=== PATIENT | female | born 1950 | race Caucasian/White ===

== ENCOUNTER → 2016-07-13 | Outpatient (CLI) | payer OTHER ==
[~2016-07-13] MED LIST: ACET-1175 PO; AMLO10TA2 PO; ATRINS INH; ATV5 PO; BISA10SU3 PR; CITA20TA4 PO; CMD3 PO; DFL100 PO; DRGTP12 TD; ECRCR EXT; EMOL1CRE10 TOP; FERR1TAB39 PO; FLV1 PO; FOLI1TAB7 PO; IPRASOL4 INH; KFL500 PO; LISI-725 PO; LNX125 PO; LORA-741 PO; LPR100 PO; LVNIS40 SQ; METO25TA56 PO; MOML PO; MULTTAB PO; NUTR-1197 PO; NYSCR30 TOP; NYSP EXT; OXYC-106 PO; OXYC-57 PO; POLY335019 PO; PRT40 PO; SODIENE PR; TYL325X PO; WARF3TAB PO; WARF4TAB PO; XPNINS1255 INH
[2016-07-13 09:27] LABS: INR 3.6 (0.9-1.1); PROTHROMBIN TIME (PATIENT) 40.7 SECONDS (9.0-12.0)
== END | disposition home or self-care (01) ==
LOC: C.LABUPUNI 08:52
PROVIDERS: ATTEND Family Medicine
DX: I48.2 Chronic atrial fibrillation (principal)

== ENCOUNTER → 2016-07-16 | Outpatient (CLI) | payer OTHER ==
[2016-07-16 11:03] LABS: BLOOD UREA NITROGEN 50 mg/dl (7-18); BUN/CREATININE RATIO 26.3 (10-20); CALCIUM 9.5 mg/dl (8.5-10.1); CARBON DIOXIDE 22 mmol/L (21-32); CHLORIDE 111 mmol/L (98-107); GLUCOSE 178 mg/dl (70-99); POTASSIUM 4.4 mmol/L (3.5-5.1); SODIUM 142 mmol/L (136-145)
[2016-07-16 11:07] LABS: BASO % 0.6 %; BASO ABS # 0.07 K/uL (0-0.2); COMPLETE YES; HEMATOCRIT 30.6 % (37-47); IG% 1.1 %; LYMPH % 22.3 %; LYMPH ABS # 2.73 K/uL (1.2-3.4); MEAN CELL VOLUME 96.2 fL (80-100); MEAN CORPUSCULAR HEMOGLOBIN 31.4 pg (25-34); MEAN CORPUSCULAR HGB CONC 32.7 g/dl (32-36); MEAN PLATELET VOLUME 12.5 fL (7.4-10.4); MONO % 12.3 %; NEUT % 61.7 %; PLATELET COUNT 232 K/uL (130-400); RED BLOOD COUNT 3.18 M/uL (4.2-5.4); WHITE BLOOD COUNT 12.26 K/uL (4.8-10.8)
== END ==
LOC: C.LABUPUNI 10:37
PROVIDERS: ATTEND Family Medicine
DX: D64.9 Anemia, unspecified (principal); E87.6 Hypokalemia; I50.9 Heart failure, unspecified

== ENCOUNTER → 2016-07-17 | Outpatient (CLI) | payer OTHER ==
[2016-07-17 08:53] LABS: INR 2.4 (0.9-1.1); PROTHROMBIN TIME (PATIENT) 27.2 SECONDS (9.0-12.0)
== END ==
LOC: C.LABUPUNI 08:19
PROVIDERS: ATTEND Family Medicine
DX: I50.9 Heart failure, unspecified (principal); D64.9 Anemia, unspecified

== ENCOUNTER → 2016-07-24 | Outpatient (CLI) | payer OTHER ==
[2016-07-24 08:54] LABS: INR 1.7 (0.9-1.1); PROTHROMBIN TIME (PATIENT) 18.1 SECONDS (9.0-12.0)
== END ==
LOC: C.LABUPUNI 08:10
PROVIDERS: ATTEND Family Medicine
DX: I48.2 Chronic atrial fibrillation (principal)

== ENCOUNTER → 2016-07-27 | Outpatient (CLI) | payer OTHER ==
[2016-07-27 10:24] LABS: INR 1.9 (0.9-1.1)
== END ==
LOC: C.LABUPUNI 09:40
PROVIDERS: ATTEND Family Medicine
DX: I48.1 Persistent atrial fibrillation (principal)

== ENCOUNTER → 2016-08-03 | Outpatient (CLI) | payer OTHER ==
[2016-08-03 09:18] LABS: INR 2.3 (0.9-1.1); PROTHROMBIN TIME (PATIENT) 25.4 SECONDS (9.0-12.0)
== END ==
LOC: C.LABUPUNI 08:34
PROVIDERS: ATTEND Family Medicine
DX: D64.9 Anemia, unspecified (principal)

== ENCOUNTER → 2016-08-13 | Outpatient (CLI) | payer OTHER ==
[2016-08-13 08:51] LABS: HEMATOCRIT 30.4 % (37-47); MEAN CELL VOLUME 95.3 fL (80-100); MEAN CORPUSCULAR HEMOGLOBIN 31.3 pg (25-34); MEAN CORPUSCULAR HGB CONC 32.9 g/dl (32-36); MEAN PLATELET VOLUME 12.4 fL (7.4-10.4); PLATELET COUNT 212 K/uL (130-400); RED BLOOD COUNT 3.19 M/uL (4.2-5.4); WHITE BLOOD COUNT 11.42 K/uL (4.8-10.8)
--- NOTE | 2016-08-14 10:34 | CODING QUERY NO DIAGNOSIS ---
: 1950 TREATMENT RENDERED WITHOUT A DIAGNOSIS To promote full compliance with coding requirements relating to patient care, physician participation is requested in all cases of presser hand uncertainty. Please assist us with providing a diagnosis/symptom for the test(s) below: A diagnosis/symptom was not documented on your Order. A valid diagnosis/symptom is required to bill all insurances. Please remember that we are unable to code a diagnosis of rule out, probable, possible, questionable, or suspected. Tests that require a diagnosis: DOS: 08/13/16 * CBC w/o Diff DIAGNOSIS: Provider Signature: Date: Thank you Keri [facility] Information Management Once completed, please kindly fax back to [phone] For questions please call [phone]
== END ==
LOC: C.LABUPUNI 08:30
PROVIDERS: ATTEND Family Medicine
DX: D64.9 Anemia, unspecified (principal); R53.83 Other fatigue

== ENCOUNTER → 2016-08-17 | Outpatient (CLI) | payer OTHER ==
[2016-08-17 09:08] LABS: PROTHROMBIN TIME (PATIENT) 22.2 SECONDS (9.0-12.0)
== END ==
LOC: C.LABUPUNI 08:40
PROVIDERS: ATTEND Family Medicine
DX: I48.2 Chronic atrial fibrillation (principal)

== ENCOUNTER → 2016-08-31 | Outpatient (CLI) | payer OTHER ==
[2016-08-31 09:40] LABS: INR 2.1 (0.9-1.1); PROTHROMBIN TIME (PATIENT) 23.4 SECONDS (9.0-12.0)
== END ==
LOC: C.LABUPUNI 09:11
PROVIDERS: ATTEND Family Medicine
DX: I48.2 Chronic atrial fibrillation (principal)

== ENCOUNTER → 2016-09-10 | Outpatient (CLI) | payer OTHER ==
[2016-09-10 10:06] LABS: BLOOD UREA NITROGEN 50 mg/dl (7-18); CALCIUM 9.8 mg/dl (8.5-10.1); CARBON DIOXIDE 19 mmol/L (21-32); CHLORIDE 108 mmol/L (98-107); GLUCOSE 176 mg/dl (70-99); POTASSIUM 3.9 mmol/L (3.5-5.1); SODIUM 138 mmol/L (136-145)
== END ==
LOC: C.LABUPUNI 09:15
PROVIDERS: ATTEND Family Medicine
DX: I50.9 Heart failure, unspecified (principal)

== ENCOUNTER → 2016-09-11 | Outpatient (CLI) | payer OTHER ==
[2016-09-11 09:14] LABS: URINE APPEARANCE CLOUDY (CLEAR); URINE BILIRUBIN NEG (NEG); URINE COLOR YELLOW; URINE EPITHELIAL CELL AUTO 0-5 /lpf (0-5); URINE NITRITE POS (NEG); URINE SPECIFIC GRAVITY 1.014 (1.000-1.030); UROBILINOGEN NEG (NEG)
[2016-09-11 09:17] LABS: MANUAL MICROSCOPIC REQUIRED? NO; REVIEW REQ? NO
--- NOTE | 2016-11-20 06:28 | CODING QUERY NO DIAGNOSIS ---
: 1950 TREATMENT RENDERED WITHOUT A DIAGNOSIS To promote full compliance with coding requirements relating to patient care, physician participation is requested in all cases of certified medical coder uncertainty. Please assist us with providing a diagnosis/symptom for the test(s) below: A diagnosis/symptom was not documented on your Order. A valid diagnosis/symptom is required to bill all insurances. Please remember that we are unable to code a diagnosis of rule out, probable, possible, questionable, or suspected. Tests that require a diagnosis: DOS: 09/11/16 UA CLEAN CATCH DIAGNOSIS: MICROALBUMINURIA DIAGNOSIS: URINE CULTURE DIAGNOSIS: Provider Signature: Date: Thank you Tsering Pruitt [email or web address] Information Management Once completed, please kindly fax back to [phone] For questions please call [phone]
== END | disposition home or self-care (01) ==
LOC: C.LABUPUNI 08:31
PROVIDERS: ATTEND Family Medicine
DX: Z01.89 Encounter for other specified special examinations (principal)

== ENCOUNTER → 2016-09-17 | Outpatient (CLI) | payer OTHER | LOC: C.LABUPUNI 09:10 | PROVIDERS: ATTEND Family Medicine | DX: I48.2 Chronic atrial fibrillation (principal) ==

== ENCOUNTER → 2016-09-28 | Outpatient (CLI) | payer OTHER ==
[2016-09-28 09:21] LABS: INR 3.8 (0.9-1.1); PROTHROMBIN TIME (PATIENT) 42.4 SECONDS (9.0-12.0)
--- NOTE | 2016-09-30 11:53 | CODING QUERY NO DIAGNOSIS ---
TREATMENT RENDERED WITHOUT A DIAGNOSIS To promote full compliance with coding requirements relating to patient care, physician participation is requested in all cases of site administrator uncertainty. Please assist us with providing a diagnosis/symptom for the test(s) below: A diagnosis/symptom was not documented on your Order. A valid diagnosis/symptom is required to bill all insurances. Please remember that we are unable to code a diagnosis of rule out, probable, possible, questionable, or suspected. Tests that require a diagnosis: DOS: 09/28/16 * PT/INR DIAGNOSIS: Provider Signature: Date: Thank you Amanda [facility] Information Management Once completed, please kindly fax back to [phone] For questions please call [phone]
== END ==
LOC: C.LABUPUNI 08:08
PROVIDERS: ATTEND Family Medicine
DX: Z51.81 Encounter for therapeutic drug level monitoring (principal); Z79.01 Long term (current) use of anticoagulants

== ENCOUNTER → 2016-10-05 | Outpatient (CLI) | payer OTHER ==
[2016-10-05 08:57] LABS: INR 2.2 (0.9-1.1); PROTHROMBIN TIME (PATIENT) 24.4 SECONDS (9.0-12.0)
== END ==
LOC: C.LABUPUNI 08:31
PROVIDERS: ATTEND Family Medicine
DX: I48.2 Chronic atrial fibrillation (principal)

== ENCOUNTER → 2016-10-06 | Outpatient (CLI) | payer OTHER ==
--- NOTE | 2016-10-06 14:54 | DIAGNOSTIC IMAGING REPORT ---
CT OF THE ABDOMEN AND PELVIS WITHOUT CONTRAST CLINICAL HISTORY: Bilateral renal masses. Evaluate for cysts. COMPARISON STUDY: CT of the abdomen and pelvis December 04, 2014 and renal ultrasound December 05, 2014. TECHNIQUE: Axial images of the abdomen and pelvis were obtained without IV contrast. Images were reviewed in the axial, sagittal, and coronal planes. FINDINGS: Visualized portions of the lower chest demonstrate moderate cardiomegaly. Left lower lobe and lingular opacities suggest atelectasis. There is a trace left pleural effusion. Evaluation of the abdomen and pelvis is suboptimal on this unenhanced exam. Fatty infiltration of the liver is noted. Unenhanced images of the spleen, left adrenal gland pancreas are unremarkable. A low-attenuation 2.9 cm right adrenal nodule is unchanged since CT of December 04, 2014. This represents an adenoma. There is gas within the right renal collecting system as well as the bladder. Numerous water attenuation bilateral renal lesions are noted. These are suboptimally assessed on this unenhanced exam but were shown to represent cysts on prior ultrasound. There is no hydronephrosis. There is no evidence for a bowel obstruction. There is colonic diverticulosis without evidence for acute diverticulitis. Note is made of moderate amount stool within the colon. There is a fat-containing umbilical hernia. No suspicious osseous lesions are identified. IMPRESSION: 1. Multiple water attenuation bilateral renal lesions, including a 9 cm lesion arising from the lower pole of the right kidney. These are suboptimally assessed on this unenhanced exam but are similar to prior CT and were shown to represent cysts on prior ultrasound. 2. Gas within the right renal collecting system and the bladder. This could be due to recent instrumentation or an infectious process. Correlation with history of recent instrumentation and clinical evidence for infectious process is recommended. 3. Fatty liver. 4. Right adrenal adenoma. Electronically signed by: Jameson Amezcua M.D. 10/06/2016 2:53 PM Dictated Date/Time: 10/06/2016 2:43 PM
== END | disposition home or self-care (01) ==
LOC: C.CTS 13:43
PROVIDERS: ATTEND Hospitalist
DX: N28.89 Other specified disorders of kidney and ureter (principal); K42.9 Umbilical hernia without obstruction or gangrene; K76.0 Fatty (change of) liver, not elsewhere classified

== ENCOUNTER → 2016-10-12 | Outpatient (CLI) | payer OTHER ==
[2016-10-12 09:14] LABS: INR 2.4 (0.9-1.1); PROTHROMBIN TIME (PATIENT) 26.6 SECONDS (9.0-12.0)
== END ==
LOC: C.LABUPUNI 08:45
PROVIDERS: ATTEND Family Medicine
DX: I48.2 Chronic atrial fibrillation (principal)

== ENCOUNTER → 2016-10-26 | Outpatient (CLI) | payer OTHER ==
[2016-10-26 09:55] LABS: INR 2.8 (0.9-1.1); PROTHROMBIN TIME (PATIENT) 31.1 SECONDS (9.0-12.0)
== END | disposition home or self-care (01) ==
LOC: C.LABUPUNI 09:16
PROVIDERS: ATTEND Family Medicine
DX: I48.2 Chronic atrial fibrillation (principal)

== ENCOUNTER 2016-10-29 20:16 | Emergency (ER) | payer OTHER ==
[~2016-10-29] VITALS: Ht 172.7 cm; Wt 111.8 kg
[~2016-10-29 20:16] MED LIST changes: -ACET-1175 PO; -AMLO10TA2 PO; -BISA10SU3 PR; -CITA20TA4 PO; -EMOL1CRE10 TOP; -FERR1TAB39 PO; -FOLI1TAB7 PO; -IPRASOL4 INH; -LISI-725 PO; -LORA-741 PO; -METO25TA56 PO; -MOML PO; -MULTTAB PO; -NYSCR30 TOP; -OXYC-57 PO; -POLY335019 PO; -SODIENE PR; -WARF3TAB PO; -WARF4TAB PO
[2016-10-29] MEDS ORDERED: ONDANSETRON INJ 2 MG/ML 2 ML VIAL IV STA (20:29)
[2016-10-29] MEDS ORDERED: SODIUM CHLORIDE 0.9% 1000ML 1,000 ML IV STA (20:29)
[2016-10-29] MEDS ORDERED: MoRPHine SULFATE 4 MG/ML 1 ML CARP\\VIAL IV PRN (20:30)
--- NOTE | 2016-10-29 20:31 | EMERGENCY ROOM VISIT NOTE ---
History Report prepared by Munir: Anjum Robbins Under the Supervision of: Dr. Timothy Anderson D.O. First contact with patient: 20:20 Stated Complaint: FALL/ BACK [facility] / [facility] History of Present Illness The patient is a 65 year old female who presents to the Emergency Room with complaints of an acute fall that occurred earlier tonight. The patient was using a lift chair to descend the steps when a wire snapped and she fell from the chair. She was at the 3rd step from the bottom. She now complains of increased lower back pain. She did not hit her head or lose consciousness. The patient denies head pain, neck pain, shortness of breath, hip or leg pain. She has ankle pain at baseline. The patient has a history of hypertension. She resided at [facility], which is where the fall occurred. Source of History: patient Onset: earlier tonight Position: other (global) Quality: other (fall) Timing: other (acute) Associated Symptoms: + back pain, No LOC, No chest pain, No headache, No neck pain Review of Systems See HPI for pertinent positives & negatives. A total of 10 systems reviewed and were otherwise negative. Past Medical & Surgical Medical Problems: (1) Chronic kidney disease (2) Hypertension (3) Medical non-compliance Family History Patient reports no known family medical history. Social History Smoking Status: Unknown if Ever Smoked Marital Status: single Occupation Status: retired Current/Historical Medications Scheduled Amlodipine Besylate (Norvasc), 10 MG PO DAILY Citalopram Hydrobromide (Citalopram Hydrobromide), 20 MG PO DAILY Digoxin (Digoxin), 0.125 MG PO DAILY Emollient (Eucerin Calming Daily Mario), 1 APPLN TOP BID Ferrous Sulfate Dried (Feosol), 325 MG PO DAILY Folic Acid (Folvite), 1 MG PO DAILY Lisinopril (Zestril), 20 MG PO DAILY Metoprolol Tartrate (Lopressor) (Lopressor), 25 MG PO BID Multivitamins/Minerals (Mvi With Minerals), 1 TAB PO DAILY Warfarin Sodium (Coumadin), 4 MG PO HS Scheduled PRN Acetaminophen (Tylenol), 650 MG PO Q4H PRN for Fever Acetaminophen (Tylenol), 650 MG PO Q6H PRN for Pain Bisacodyl (Dulcolax), 1 SUPP NV Q24H PRN for Constipation Ipratropium-Albuterol (Duoneb), 1 TREATMENT INH Q4H PRN for SOB/Wheezing Magnesium Hydroxide (Milk Of Magnesia), 30 ML PO Q24H PRN for Constipation Nystatin (Nystatin Cream), 1 APPLN TOP Q8 PRN for Skin Irritation/Excoriation Oxycodone/Acetaminophen 5MG/325MG (Percocet 5MG/325MG), 1 TABLET PO Q6H PRN for Pain Polyethylene Glycol 3350 (Miralax), 17 GM PO Q24H PRN for Constipation Sodium Phosphate/Biphosphate (Fleet Enema), 1 EA NV UD PRN for Constipation Allergies Coded Allergies: Cephalosporins (Verified Allergy, Unknown, Unknown, 10/29/16) Sulfa Antibiotics (Verified Allergy, Unknown, unknown, 02/05/15) Physical Exam Vital Signs Date Time Temp Pulse Resp B/P Pulse Ox O2 Delivery O2 Flow Rate FiO2 10/30/16 01:35 100 22 118/73 94 Room Air 10/29/16 23:32 92 24 104/77 92 Nasal Cannula 10/29/16 22:24 143 10/29/16 22:20 96 Nasal Cannula 2.0 10/29/16 22:15 124 20 99/58 92 Room Air 10/29/16 20:33 37.0 126 25 121/93 94 Room Air Physical Exam GENERAL: Patient is awake, alert, very anxious and uncomfortable appearing, appears to be in moderate pain. EYES: The conjunctivae are clear. The pupils are round and reactive. EARS, NOSE, MOUTH AND THROAT: The nose is without any evidence of any deformity. Mucous membranes are moist tongue is midline NECK: The neck is nontender and supple. RESPIRATORY: Normal respiratory effort is noted there is no evidence of wheezing rhonchi or rales CARDIOVASCULAR: Regular rate and rhythm noted there no murmurs rubs or gallops normal S1 normal S2 GASTROINTESTINAL: The abdomen is soft. Bowel sounds are present in all quadrants. Abdomen is nontender BACK: Lower lumbar spine tenderness to palpation, range of motion appeared limited secondary to pain. MUSCULOSKELETAL/EXTREMITIES: There is no evidence of gross deformity full range of motion is noted in the hips and shoulders SKIN: There is no obvious evidence of any rash. There are no petechiae, pallor or cyanosis noted. Pedal edema was noted bilaterally. NEUROLOGIC: Patient is awake alert and oriented to person place and situation. Medical Decision & Procedures ER Provider Diagnostic Interpretation: Radiology results as stated below per my review and radiologist interpretation: HEAD CT NONCONTRAST CT DOSE: 687.98 mGy.cm HISTORY: fall TECHNIQUE: Multiaxial CT images of the head were performed without the use of intravenous contrast. Automated exposure control was utilized for this study. Comparison: Head CT 12/05/2014. Findings: Mild mucosal thickening within the right maxillary sinus. The mastoid air cells are clear. Left parietal scalp swelling. The calvarium and skull base are intact. There is no mass, hematoma, midline shift, acute infarct. White matter hypodensity is nonspecific but suggestive of microvascular ischemic change. The ventricles and sulci demonstrate mild age-related involutional changes. 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 Impression: No acute intracranial abnormality. 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 Left parietal scalp swelling. Electronically signed by: Sandoval Panda M.D. 10/29/2016 9:58 PM Dictated Date/Time: 10/29/2016 9:53 PM CHEST ONE VIEW PORTABLE HISTORY: Fall. COMPARISON: Chest 12/04/2014. FINDINGS: The cardiac silhouette remains enlarged. Linear densities within the left midlung zone favor subsegmental atelectasis or scarring. The lungs are otherwise clear. No pleural effusions. No pneumothorax. IMPRESSION: Stable cardiomegaly. Linear density within the left midlung zone favor scarring or atelectasis. Electronically signed by: Sandoval Panda M.D. 10/29/2016 10:29 PM Dictated Date/Time: 10/29/2016 10:[address] DOSE: 2188.67 mGy.cm HISTORY: Back pain. fall TECHNIQUE: Multiaxial CT images of the lumbar spine were performed and reformatted in the sagittal and coronal plane without the use of contrast. COMPARISON: None. FINDINGS: Fusion of the L5-S1 vertebral bodies and the L3-S1 facets. Nondisplaced left L1-L4 transverse process fractures. Partially visualized 7.4 cm hypodense lesion within the lower pole of the right kidney. This favors a cyst. A 3 cm right adrenal nodule. This demonstrates average Hounsfield units of less than 10 and is therefore consistent with a benign adenoma. Moderate central canal narrowing at L4-5. Mild disc space narrowing at L4-L5. IMPRESSION: Nondisplaced left L1-L4 transverse process fractures. Electronically signed by: Sandoval Panda M.D. 10/29/2016 10:04 PM Dictated Date/Time: 10/29/2016 9:[address] DOSE: HISTORY: Pelvic pain. fall TECHNIQUE: Multiaxial CT images of the pelvis were performed and reformatted in the sagittal and coronal plane without the use of contrast. COMPARISON: None. FINDINGS: No fracture or dislocation within the pelvis or hips. The sacrum is intact. 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 Gas within the bladder lumen is likely due to prior catheterization. Colonic diverticulosis. Fat-containing umbilical hernia. Right renal cyst is again noted. No evidence for pelvic hematoma. IMPRESSION: No fracture or dislocation within the pelvis or hips. Electronically signed by: Sandoval Panda M.D. 10/29/2016 10:11 PM Dictated Date/Time: 10/29/2016 10:04 PM Laboratory Results 10/29/16 20:50 Red Blood Count 3.20, Mean Corpuscular Volume 91.3, Mean Corpuscular Hemoglobin 28.8, Mean Corpuscular Hemoglobin Concent 31.5, Mean Platelet Volume 11.3, Neutrophils (%) (Auto) 76.5, Lymphocytes (%) (Auto) 9.9, Monocytes (%) (Auto) 10.8, Eosinophils (%) (Auto) 1.9, Basophils (%) (Auto) 0.2, Neutrophils # (Auto ) 10.20, Lymphocytes # (Auto) 1.32, Monocytes # (Auto) 1.44, Eosinophils # (Auto ) 0.25, Basophils # (Auto) 0.03 10/29/16 20:50 Test 10/29/16 20:50 White Blood Count 13.33 K/uL (4.8-10.8) Red Blood Count 3.20 M/uL (4.2-5.4) Hemoglobin 9.2 g/dL (12.0-16.0) Hematocrit 29.2 % (37-47) Mean Corpuscular Volume 91.3 fL (80-100) Mean Corpuscular Hemoglobin 28.8 pg (25-34) Mean Corpuscular Hemoglobin Concent 31.5 g/dl (32-36) Platelet Count 311 K/uL (130-400) Mean Platelet Volume 11.3 fL (7.4-10.4) Neutrophils (%) (Auto) 76.5 % Lymphocytes (%) (Auto) 9.9 % Monocytes (%) (Auto) 10.8 % Eosinophils (%) (Auto) 1.9 % Basophils (%) (Auto) 0.2 % Neutrophils # (Auto) 10.20 K/uL (1.4-6.5) Lymphocytes # (Auto) 1.32 K/uL (1.2-3.4) Monocytes # (Auto) 1.44 K/uL (0.11-0.59) Eosinophils # (Auto) 0.25 K/uL (0-0.5) Basophils # (Auto) 0.03 K/uL (0-0.2) RDW Standard Deviation 46.0 fL (36.4-46.3) RDW Coefficient of Variation 13.8 % (11.5-14.5) Immature Granulocyte % (Auto) 0.7 % Immature Granulocyte # (Auto) 0.09 K/uL (0.00-0.02) Prothrombin Time 34.1 SECONDS (9.0-12.0) Prothromb Time International Ratio 3.0 (0.9-1.1) Activated Partial Thromboplast Time 38.7 SECONDS (21.0-31.0) Partial Thromboplastin Ratio 1.5 Anion Gap 10.0 mmol/L (3-11) Est Creatinine Clear Calc Drug Dose 31.0 ml/min Estimated GFR () 23.9 Estimated GFR (Non- 20.6 BUN/Creatinine Ratio 32.1 (10-20) Calcium Level 9.6 mg/dl (8.5-10.1) Total Bilirubin 0.3 mg/dl (0.2-1) Direct Bilirubin < 0.1 mg/dl (0-0.2) Aspartate Amino Transf (AST/SGOT) 21 U/L (15-37) Alanine Aminotransferase (ALT/SGPT) 35 U/L (12-78) Alkaline Phosphatase 78 U/L (45-117) Total Protein 7.1 gm/dl (6.4-8.2) Albumin 2.5 gm/dl (3.4-5.0) Lipase 432 U/L (73-393) Digoxin Level 1.1 ng/ml (0.8-2.0) Laboratory results per my review. Medications Administered Medications (Trade) Dose Ordered Sig/Oneyda Route Start Time Stop Time Status Last Admin Dose Admin Morphine Sulfate (MoRPHine SULFATE INJ) 4 mg Q15M PRN IV 10/29/16 20:30 10/30/16 02:01 DC 10/29/16 20:59 4 MG Ondansetron HCl 4 mg 4 mg NOW STAT IV 10/29/16 20:29 10/29/16 20:31 DC 10/29/16 20:59 4 MG Sodium Chloride (Nss 1000ml) 1,000 ml @ 125 mls/hr Q8H STAT IV 10/29/16 20:29 10/30/16 02:01 DC 10/29/16 22:36 125 MLS/HR ED Course 2019: The patient was evaluated in room B12b. A complete history and physical examination were performed. 2028: NSS 1000 ml @ 125 mls/hr, Zofran 4 mg IV. 2029: Morphine Sulfate 4 mg IV. 0: Reassessed the patient. Discussed the discharge instructions with her. She verbalized understanding and agreement. The patient is ready for discharge. Medical Decision Prior records/ancillary studies reviewed. Triage Nursing notes reviewed. Additional history obtained from nursing. The patient's history was concerning for traumatic injury Differential diagnosis: Etiologies such as fracture, dislocation, intra-abdominal, pneumothorax, intrathoracic , intracranial, neurologic, as well as other traumatic pathologies were entertained. The patient is a 65-year-old male who presented to the emergency department for an evaluation after a fall. She was at her personal half-way when she fell. It sounds as though they were transferring her. She landed on her back. She had very significant back pain. She was treated with IV pain medication in the emergency department. On subsequent reevaluation she was feeling much better. I discussed patient's laboratory and radiographic studies with her. Initially I was going to evaluate her for possible observation with the [facility] hospitalist but she was feeling much better. She is already scheduled to have pain medication in the half-way. She was encouraged to continue all medications as prescribed and return to the emergency department immediately if symptoms change worsen or the need arises. Impression Primary Impression: Lumbar transverse process fracture Additional Impressions: MARY (acute kidney injury) Head injury Anemia Scribe Attestation The scribe's documentation has been prepared under my direction and personally reviewed by me in its entirety. I confirm that the note above accurately reflects all work, treatment, procedures, and medical decision making performed by me. Departure Information Dispostion Home / Self-Care Referrals [facility] (PCP) Forms HOME CARE DOCUMENTATION FORM, IMPORTANT VISIT INFORMATION Patient Instructions ED Anemia Type Not Specified, ED Fx Transverse Spinous Process, My [facility] Additional Instructions Continue all medications as prescribed. I would recommend repeat laboratory studies this week to reevaluate the anemia. Problem Qualifiers Primary Impression: Lumbar transverse process fracture Encounter type: initial encounter Fracture type: closed Qualified Codes: S32.008A - Other fracture of unspecified lumbar vertebra, initial encounter for closed fracture Additional Impressions: Head injury Encounter type: initial encounter Qualified Codes: S09.90XA - Unspecified injury of head, initial encounter
[2016-10-29 20:33] VITALS: TEMP 37; Ht 172.7 cm; Wt 111.8 kg
[2016-10-29 21:16] LABS: PARTIAL THROMBOPLASTIN RATIO 1.5; PROTHROMBIN TIME (PATIENT) 34.1 SECONDS (9.0-12.0)
[2016-10-29] MEDS ORDERED: MOML PO (21:18)
[2016-10-29] MEDS ORDERED: NYSCR30 TOP (21:18)
[2016-10-29] MEDS ORDERED: OXYC-57 PO (21:18)
[2016-10-29] MEDS ORDERED: POLY335019 PO (21:18)
[2016-10-29] MEDS ORDERED: MULTTAB PO (21:18)
[2016-10-29] MEDS ORDERED: LISI-725 PO (21:18)
[2016-10-29] MEDS ORDERED: METO25TA56 PO (21:18)
[2016-10-29] MEDS ORDERED: ACET-1175 PO ×2 (21:23)
[2016-10-29] MEDS ORDERED: AMLO10TA2 PO (21:23)
[2016-10-29] MEDS ORDERED: CITA20TA4 PO (21:23)
[2016-10-29 21:25] LABS: ALT/SGPT 35 U/L (12-78); BLOOD UREA NITROGEN 77 mg/dl (7-18); BUN/CREATININE RATIO 32.1 (10-20); CARBON DIOXIDE 21 mmol/L (21-32); CHLORIDE 105 mmol/L (98-107); GLUCOSE 194 mg/dl (70-99); SODIUM 136 mmol/L (136-145)
[2016-10-29 21:28] LABS: ALKALINE PHOSPHATASE 78 U/L (45-117); AST/SGOT 21 U/L (15-37)
[2016-10-29] MEDS ORDERED: FERR1TAB39 PO (21:38)
[2016-10-29] MEDS ORDERED: EMOL1CRE10 TOP (21:38)
[2016-10-29] MEDS ORDERED: IPRASOL4 INH (21:38)
[2016-10-29] MEDS ORDERED: SODIENE PR (21:38)
[2016-10-29] MEDS ORDERED: BISA10SU3 PR (21:38)
[2016-10-29] MEDS ORDERED: FOLI1TAB7 PO (21:38)
[2016-10-29] MEDS ORDERED: WARF4TAB PO (21:38)
[2016-10-29] MEDS ORDERED: LNX125 PO (21:38)
[2016-10-29 21:40] LABS: BASO % 0.2 %; BASO ABS # 0.03 K/uL (0-0.2); COMPLETE YES; EOS % 1.9 %; HEMATOCRIT 29.2 % (37-47); IG% 0.7 %; LYMPH % 9.9 %; LYMPH ABS # 1.32 K/uL (1.2-3.4); MEAN CELL VOLUME 91.3 fL (80-100); MEAN CORPUSCULAR HEMOGLOBIN 28.8 pg (25-34); MEAN CORPUSCULAR HGB CONC 31.5 g/dl (32-36); MEAN PLATELET VOLUME 11.3 fL (7.4-10.4); MONO % 10.8 %; NEUT % 76.5 %; PLATELET COUNT 311 K/uL (130-400); WHITE BLOOD COUNT 13.33 K/uL (4.8-10.8)
[2016-10-29 21:52] LABS: CALCIUM 9.6 mg/dl (8.5-10.1)
--- NOTE | 2016-10-29 22:01 | DIAGNOSTIC IMAGING REPORT ---
HEAD CT NONCONTRAST CT DOSE: 687.98 mGy.cm HISTORY: fall TECHNIQUE: Multiaxial CT images of the head were performed without the use of intravenous contrast. Automated exposure control was utilized for this study. Comparison: Head CT 12/05/2014. Findings: Mild mucosal thickening within the right maxillary sinus. The mastoid air cells are clear. Left parietal scalp swelling. The calvarium and skull base are intact. There is no mass, hematoma, midline shift, acute infarct. White matter hypodensity is nonspecific but suggestive of microvascular ischemic change. The ventricles and sulci demonstrate mild age-related involutional changes. 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 Impression: No acute intracranial abnormality. 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 Left parietal scalp swelling. Electronically signed by: Sandoval Panda M.D. 10/29/2016 9:58 PM Dictated Date/Time: 10/29/2016 9:53 PM
--- NOTE | 2016-10-29 22:06 | DIAGNOSTIC IMAGING REPORT ---
LUMBAR SPINE CT CT DOSE: 2188.67 mGy.cm HISTORY: Back pain. fall TECHNIQUE: Multiaxial CT images of the lumbar spine were performed and reformatted in the sagittal and coronal plane without the use of contrast. COMPARISON: None. FINDINGS: Fusion of the L5-S1 vertebral bodies and the L3-S1 facets. Nondisplaced left L1-L4 transverse process fractures. Partially visualized 7.4 cm hypodense lesion within the lower pole of the right kidney. This favors a cyst. A 3 cm right adrenal nodule. This demonstrates average Hounsfield units of less than 10 and is therefore consistent with a benign adenoma. Moderate central canal narrowing at L4-5. Mild disc space narrowing at L4-L5. IMPRESSION: Nondisplaced left L1-L4 transverse process fractures. Electronically signed by: Sandoval Panda M.D. 10/29/2016 10:04 PM Dictated Date/Time: 10/29/2016 9:59 PM
--- NOTE | 2016-10-29 22:13 | DIAGNOSTIC IMAGING REPORT ---
PELVIS CT CT DOSE: HISTORY: Pelvic pain. fall TECHNIQUE: Multiaxial CT images of the pelvis were performed and reformatted in the sagittal and coronal plane without the use of contrast. COMPARISON: None. FINDINGS: No fracture or dislocation within the pelvis or hips. The sacrum is intact. 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 Gas within the bladder lumen is likely due to prior catheterization. Colonic diverticulosis. Fat-containing umbilical hernia. Right renal cyst is again noted. No evidence for pelvic hematoma. IMPRESSION: No fracture or dislocation within the pelvis or hips. Electronically signed by: Sandoval Panda M.D. 10/29/2016 10:11 PM Dictated Date/Time: 10/29/2016 10:04 PM
[2016-10-29 22:20] VITALS: O2SAT 96
--- NOTE | 2016-10-29 22:31 | DIAGNOSTIC IMAGING REPORT ---
CHEST ONE VIEW PORTABLE HISTORY: Fall. COMPARISON: Chest 12/04/2014. FINDINGS: The cardiac silhouette remains enlarged. Linear densities within the left midlung zone favor subsegmental atelectasis or scarring. The lungs are otherwise clear. No pleural effusions. No pneumothorax. IMPRESSION: Stable cardiomegaly. Linear density within the left midlung zone favor scarring or atelectasis. Electronically signed by: Sandoval Panda M.D. 10/29/2016 10:29 PM Dictated Date/Time: 10/29/2016 10:28 PM
[2016-10-30 01:35] VITALS: BP 118/73; PULSE 100; O2SAT 94
[2016-11-23] MEDS ORDERED: WARF3TAB PO (08:12)
[2016-11-23] MEDS ORDERED: LORA-741 PO (08:12)
== END 2016-10-30 01:46 | disposition home or self-care (01) ==
LOC: EDBD 20:16 → C.EDB 20:18
DX: M54.5 Low back pain (principal); R22.0 Localized swelling, mass and lump, head; W10.8XXA Fall (on) (from) other stairs and steps, initial encounter; Y92.89 Other specified places as the place of occurrence of the external cause; I12.9 Hypertensive chronic kidney disease with stage 1 through stage 4 chronic kidney disease, or unspecified chronic kidney disease; N18.9 Chronic kidney disease, unspecified; Z79.899 Other long term (current) drug therapy; Z79.01 Long term (current) use of anticoagulants

== ENCOUNTER → 2016-11-02 | Outpatient (CLI) | payer OTHER ==
[~2016-11-02] MED LIST changes: +ACET-1175 PO; +AMLO10TA2 PO; +BISA10SU3 PR; +CITA20TA4 PO; +EMOL1CRE10 TOP; +FERR1TAB39 PO; +FOLI1TAB7 PO; +IPRASOL4 INH; +LISI-725 PO; +LORA-741 PO; +METO25TA56 PO; +MOML PO; +MULTTAB PO; +NYSCR30 TOP; +OXYC-57 PO; +POLY335019 PO; +SODIENE PR; +WARF3TAB PO; +WARF4TAB PO
[2016-11-02 10:49] LABS: HEMATOCRIT 26.3 % (37-47); MEAN CELL VOLUME 91.6 fL (80-100); MEAN CORPUSCULAR HEMOGLOBIN 28.9 pg (25-34); MEAN CORPUSCULAR HGB CONC 31.6 g/dl (32-36); MEAN PLATELET VOLUME 11.7 fL (7.4-10.4); PLATELET COUNT 257 K/uL (130-400); RED BLOOD COUNT 2.87 M/uL (4.2-5.4); WHITE BLOOD COUNT 9.31 K/uL (4.8-10.8)
[2016-11-02 11:07] LABS: INR 3.5 (0.9-1.1); PROTHROMBIN TIME (PATIENT) 39.1 SECONDS (9.0-12.0)
[2016-11-02 11:48] LABS: BLOOD UREA NITROGEN 77 mg/dl (7-18); CALCIUM 9.9 mg/dl (8.5-10.1); CARBON DIOXIDE 18 mmol/L (21-32); CHLORIDE 111 mmol/L (98-107); GLUCOSE 123 mg/dl (70-99); POTASSIUM 5.4 mmol/L (3.5-5.1); SODIUM 140 mmol/L (136-145)
== END ==
LOC: C.LABUPUNI 10:33
PROVIDERS: ATTEND Family Medicine
DX: I50.9 Heart failure, unspecified (principal); I48.91 Unspecified atrial fibrillation

== ENCOUNTER → 2016-11-04 | Outpatient (CLI) | payer OTHER ==
[~2016-11-04] MED LIST changes: -ATRINS INH; -ATV5 PO; -CMD3 PO; -DFL100 PO; -DRGTP12 TD; -ECRCR EXT; -FLV1 PO; -KFL500 PO; -LPR100 PO; -LVNIS40 SQ; -NUTR-1197 PO; -NYSP EXT; -OXYC-106 PO; -PRT40 PO; -TYL325X PO; -XPNINS1255 INH
[2016-11-04 10:14] LABS: PROTHROMBIN TIME (PATIENT) 22.3 SECONDS (9.0-12.0)
[2016-11-04 10:17] LABS: BLOOD UREA NITROGEN 65 mg/dl (7-18); BUN/CREATININE RATIO 27.2 (10-20); CARBON DIOXIDE 22 mmol/L (21-32); CHLORIDE 109 mmol/L (98-107); GLUCOSE 107 mg/dl (70-99); MAGNESIUM 2.5 mg/dl (1.8-2.4); SODIUM 139 mmol/L (136-145)
[2016-11-04 10:27] LABS: CALCIUM 10.3 mg/dl (8.5-10.1)
== END ==
LOC: C.LABUPUNI 09:24
PROVIDERS: ATTEND Family Medicine
DX: I48.2 Chronic atrial fibrillation (principal); D64.9 Anemia, unspecified; I50.9 Heart failure, unspecified

== ENCOUNTER → 2016-11-06 | Outpatient (CLI) | payer OTHER ==
[2016-11-06 09:07] LABS: HEMATOCRIT 26.8 % (37-47)
[2016-11-06 09:13] LABS: BLOOD UREA NITROGEN 61 mg/dl (7-18); BUN/CREATININE RATIO 26.6 (10-20); CARBON DIOXIDE 22 mmol/L (21-32); CHLORIDE 108 mmol/L (98-107); GLUCOSE 110 mg/dl (70-99); POTASSIUM 4.8 mmol/L (3.5-5.1); SODIUM 137 mmol/L (136-145)
[2016-11-06 09:21] LABS: INR 1.8 (0.9-1.1); PROTHROMBIN TIME (PATIENT) 20.3 SECONDS (9.0-12.0)
[2016-11-06 09:33] LABS: CALCIUM 10.3 mg/dl (8.5-10.1)
== END | disposition home or self-care (01) ==
LOC: C.LABUPUNI 08:48
PROVIDERS: ATTEND Nurse Practitioner Family
DX: D64.9 Anemia, unspecified (principal); I50.9 Heart failure, unspecified

== ENCOUNTER → 2016-11-09 | Outpatient (CLI) | payer OTHER ==
[2016-11-09 09:45] LABS: INR 2.6 (0.9-1.1); PROTHROMBIN TIME (PATIENT) 29.2 SECONDS (9.0-12.0)
--- NOTE | 2016-11-11 12:52 | CODING QUERY NO DIAGNOSIS ---
TREATMENT RENDERED WITHOUT A DIAGNOSIS To promote full compliance with coding requirements relating to patient care, physician participation is requested in all cases of ship pilot uncertainty. Please assist us with providing a diagnosis/symptom for the test(s) below: A diagnosis/symptom was not documented on your Order. A valid diagnosis/symptom is required to bill all insurances. Please remember that we are unable to code a diagnosis of rule out, probable, possible, questionable, or suspected. Tests that require a diagnosis: DOS: 11/09/16 * PT/INR DIAGNOSIS: Provider Signature: Date: Thank you Amanda [facility] Information Management Once completed, please kindly fax back to [phone] For questions please call [phone]
== END ==
LOC: C.LABUPUNI 09:22
PROVIDERS: ATTEND Family Medicine
DX: I48.2 Chronic atrial fibrillation (principal)

== ENCOUNTER → 2016-11-13 | Outpatient (CLI) | payer OTHER ==
[2016-11-13 10:03] LABS: INR 2.5 (0.9-1.1); PROTHROMBIN TIME (PATIENT) 28.2 SECONDS (9.0-12.0)
== END ==
LOC: C.LABUPUNI 09:17
PROVIDERS: ATTEND Family Medicine
DX: D64.9 Anemia, unspecified (principal)

== ENCOUNTER → 2016-11-19 | Outpatient (CLI) | payer OTHER ==
[2016-11-19 09:24] LABS: PROTHROMBIN TIME (PATIENT) 53.3 SECONDS (9.0-12.0)
[2016-11-19 09:46] LABS: INR 4.7 (0.9-1.1)
--- NOTE | 2016-11-23 13:55 | CODING QUERY NO DIAGNOSIS ---
: 1950 TREATMENT RENDERED WITHOUT A DIAGNOSIS To promote full compliance with coding requirements relating to patient care, physician participation is requested in all cases of health information coder uncertainty. Please assist us with providing a diagnosis/symptom for the test(s) below: A diagnosis/symptom was not documented on your Order. A valid diagnosis/symptom is required to bill all insurances. Please remember that we are unable to code a diagnosis of rule out, probable, possible, questionable, or suspected. Tests that require a diagnosis: DOS: 11/19/16 * Prothrombin Time Profile DIAGNOSIS: Provider Signature: Date: Thank you Keri Villela [facility] Information Management Once completed, please kindly fax back to [phone] For questions please call [phone]
== END ==
LOC: C.LABUPUNI 08:52
PROVIDERS: ATTEND Family Medicine
DX: Z79.01 Long term (current) use of anticoagulants (principal)

== ENCOUNTER → 2016-11-20 | Outpatient (CLI) | payer OTHER ==
[2016-11-20 09:19] LABS: PROTHROMBIN TIME (PATIENT) 47.1 SECONDS (9.0-12.0)
[2016-11-20 09:21] LABS: INR 4.1 (0.9-1.1)
== END ==
LOC: C.LABUPUNI 08:43
PROVIDERS: ATTEND Family Medicine
DX: I48.2 Chronic atrial fibrillation (principal)

== ENCOUNTER → 2016-11-21 | Outpatient (CLI) | payer OTHER ==
[2016-11-21 06:23] LABS: INR 3.4 (0.9-1.1); PROTHROMBIN TIME (PATIENT) 38.2 SECONDS (9.0-12.0)
== END | disposition home or self-care (01) ==
LOC: C.LABUPUNI 12:53
PROVIDERS: ATTEND Family Medicine
DX: I48.2 Chronic atrial fibrillation (principal)

== ENCOUNTER → 2016-11-23 | Outpatient (CLI) | payer OTHER ==
[2016-11-23 09:18] LABS: INR 1.8 (0.9-1.1); PROTHROMBIN TIME (PATIENT) 19.9 SECONDS (9.0-12.0)
== END ==
LOC: C.LABUPUNI 08:47
PROVIDERS: ATTEND Family Medicine
DX: I48.2 Chronic atrial fibrillation (principal)

== ENCOUNTER → 2016-11-26 | Day surgery (SDC) | payer OTHER ==
[2016-11-23 08:13] VITALS: Ht 170.2 cm; Wt 102.6 kg
[~2016-11-26] VITALS: Ht 170.2 cm; Wt 102.6 kg
[~2016-11-26] MED LIST changes: +LIDOCAINE HCL 2% 2 ML VIAL (20MG/ML) ONE; +MIDAZOLAM HCL 1 MG/ML 2ML VIAL ONE; +ONDANSETRON INJ 2 MG/ML 2 ML VIAL ONE; +PROPOFOL IV EMULSION 10 MG/ML 20 ML VIAL IV ONE
--- NOTE | 2016-11-26 13:45 | Endo History and Physical ---
History & Physical Date of Service: November 26, 2016. Chief Complaint: Iron Deficiency anemia Constipation Referring Physician: Dr. Carbajal History of Present Illness 66 yo CF who presents for Colonoscopy secondary to iron deficiency anemia. Past Medical History Atrial Fibrillation, Diabetes, Hypertension, Kidney Disease Past Surgical History Hx Cardiac Surgery: No Hx Abdominal Surgery: No Hx Cancer Surgery: No Hx Thoracic Surgery: No Hx Orthopedic: No Hx Urinary Tract Surgery: No Family History None Social History Smoking Status: Former Smoker Allergies Coded Allergies: Cephalosporins (Verified Allergy, Unknown, Unknown, 11/23/16) Sulfa Antibiotics (Verified Allergy, Unknown, unknown, 11/23/16) Current Medications Reported Home Medications Medications Dose Route/Sig Max Daily Dose Days Date Category Dose Instructions Coumadin (Warfarin Sodium) 3 Mg Tab 3 Mg PO 4XWK 11/23/16 Reported HS ON SUN, , THUR, SAT Ativan (Lorazepam) 0.5 Mg Tab 0.5 Mg PO Q8H PRN 11/23/16 Reported Coumadin (Warfarin Sodium) 4 Mg Tab 4 Mg PO 3XWK 10/29/16 Reported HS ON MON, WED, FRI Digoxin 0.125 Mg Tab 0.125 Mg PO DAILY 10/29/16 Reported HOLD THIS MEDICATION FOR APICAL HEART RATE LESS THAN 60 Dulcolax (Bisacodyl) 10 Mg Sup 1 Supp MN Q24H PRN 10/29/16 Reported Duoneb (Ipratropium-Albuterol) 3 Ml Nebu 1 Treatment INH Q4H PRN 10/29/16 Reported Eucerin Calming Daily Mario (Emollient) 1 Cre Cre 1 Appln TOP BID 10/29/16 Reported APPLY DIRECTED TO LEGS AND FEET Feosol (Ferrous Sulfate Dried) Unknown Strength Tab 325 Mg PO DAILY 10/29/16 Reported Fleet Enema (Sodium Phosphate/Biphosphate) Rut 1 Ea MN UD PRN 10/29/16 Reported IF AFTER 4 HOURS DULCOLAX SUPPOSITORY WAS INEFFECTIVE GIVE FLEET ENEMA Folvite (Folic Acid) 1 Mg Tab 1 Mg PO DAILY 10/29/16 Reported Citalopram Hydrobromide 20 Mg Tab 20 Mg PO DAILY 10/29/16 Reported Norvasc (Amlodipine Besylate) 10 Mg Tab 10 Mg PO DAILY 10/29/16 Reported Tylenol (Acetaminophen) 325 Mg Tab 650 Mg PO Q6H PRN 10/29/16 Reported NEEDED FOR PAIN RATED 0-10 ON A SCLAE OF "0-10". DO NOT EXCEED 3 GM APAP/24 HOURS. Tylenol (Acetaminophen) 325 Mg Tab 650 Mg PO Q4H PRN 10/29/16 Reported NEEDED FOR ELEVATED TEMPERATURE GREATER THAN 101 F. DO NOT EXCEED 3 GM APAP/24 HOURS. Miralax (Polyethylene Glycol 3350) 1 Pow Pow 17 Gm PO Q24H PRN 10/29/16 Reported MIX WITH 4 OUNCES OF PREFERRED LIQUID Milk Of Magnesia (Magnesium Hydroxide) 30 Ml Susp 30 Ml PO Q24H PRN 10/29/16 Reported NEEDED FOR NO BOWEL MOVEMENT FOR 9 SHIFTS Lopressor (Metoprolol Tartrate) 25 Mg Tab 25 Mg PO BID 10/29/16 Reported HOLD THIS MEDICATION FOR HEART RATE LESS THAN 50 Percocet 5MG/325MG (Oxycodone/Acetaminophen) Tab 1 Tablet PO Q6H PRN 10/29/16 Reported NEEDED FOR PAIN RATED 5-10 ON A SCALE OF "0-10" Nystatin Cream (Nystatin) 90 Appln/30 Gm Cr 1 Appln TOP Q8 PRN 10/29/16 Reported APPLY UNDER BREASTS/ABDOMINAL FOLDS DIRECTED Mvi With Minerals (Multivitamins/Minerals) Tab 1 Tab PO DAILY 10/29/16 Reported Vital Signs Weight (Kilograms): 102.64 Height (Feet): 0 Height (Inches): 67 Physical Exam General Appearance: WD/WN, no apparent distress Respiratory/Chest: Auscultation: breath sounds normal Cardiovascular: Heart Auscultation: RRR Abdomen: Bowel Sounds: normal Inspection & Palpation: soft, non-distended, no tenderness, guarding & rebound Assessment and Plan Assessment: 66 yo CF who presents for Colonoscopy secondary to iron deficiency anemia. Plan: Patient ate breakfast this AM, and therefore cannot be safely sedated Will need to reschedule colonoscopy
--- NOTE | 2016-11-26 13:49 | Anesthesiology Progress Note ---
Anesthesia Progress Note Date of Service November 26, 2016. Progress Notes The patient was scheduled for colonoscopy today for anemia. Her procedure was cancelled by Dr. Garcia because she had a full breakfast this morning. She will be rescheduled for another day.
== END | disposition home or self-care (01) ==
LOC: C.GI 12:43
PROVIDERS: ATTEND Internal Medicine
DX: D50.9 Iron deficiency anemia, unspecified (principal); Z53.9 Procedure and treatment not carried out, unspecified reason

== ENCOUNTER → 2016-12-25 | Outpatient (CLI) | payer OTHER ==
[~2016-12-25] MED LIST changes: -LIDOCAINE HCL 2% 2 ML VIAL (20MG/ML) ONE; -LISI-725 PO; -MIDAZOLAM HCL 1 MG/ML 2ML VIAL ONE; -ONDANSETRON INJ 2 MG/ML 2 ML VIAL ONE; -PROPOFOL IV EMULSION 10 MG/ML 20 ML VIAL IV ONE
[2016-12-25 10:36] LABS: INR 2.2 (0.9-1.1); PROTHROMBIN TIME (PATIENT) 24.1 SECONDS (9.0-12.0)
== END ==
LOC: C.LABUPUNI 09:05
PROVIDERS: ATTEND Nurse Practitioner Family
DX: I48.2 Chronic atrial fibrillation (principal)

== ENCOUNTER → 2016-12-29 | Outpatient (CLI) | payer OTHER ==
[2016-12-29 11:00] LABS: BASO % 0.3 %; BASO ABS # 0.04 K/uL (0-0.2); COMPLETE YES; EOS % 2.2 %; HEMATOCRIT 30.4 % (37-47); IG% 0.5 %; LYMPH ABS # 2.08 K/uL (1.2-3.4); MEAN CELL VOLUME 87.9 fL (80-100); MEAN CORPUSCULAR HEMOGLOBIN 27.7 pg (25-34); MEAN CORPUSCULAR HGB CONC 31.6 g/dl (32-36); MEAN PLATELET VOLUME 11.4 fL (7.4-10.4); MONO % 11.4 %; NEUT % 69.6 %; PLATELET COUNT 268 K/uL (130-400); RED BLOOD COUNT 3.46 M/uL (4.2-5.4); WHITE BLOOD COUNT 13.01 K/uL (4.8-10.8)
[2016-12-29 11:18] LABS: BLOOD UREA NITROGEN 36 mg/dl (7-18); BUN/CREATININE RATIO 15.1 (10-20); CALCIUM 10.1 mg/dl (8.5-10.1); CARBON DIOXIDE 22 mmol/L (21-32); CHLORIDE 111 mmol/L (98-107); GLUCOSE 125 mg/dl (70-99); SODIUM 142 mmol/L (136-145)
[2016-12-29 11:19] LABS: PHOSPHORUS 4.3 mg/dl (2.5-4.9)
[2016-12-29 12:38] LABS: URINE APPEARANCE CLEAR (CLEAR); URINE BILIRUBIN NEG (NEG); URINE COLOR YELLOW; URINE EPITHELIAL CELL AUTO 0-5 /lpf (0-5); URINE NITRITE POS (NEG); URINE PH 5.5 (4.5-7.5); URINE SPECIFIC GRAVITY 1.013 (1.000-1.030); UROBILINOGEN NEG (NEG)
[2016-12-29 12:47] LABS: MANUAL MICROSCOPIC REQUIRED? NO; REVIEW REQ? NO
--- NOTE | 2017-02-02 06:28 | CODING QUERY MEDICAL NECESSITY ---
CQSUPPORTING DIAGNOSIS NEEDED A supporting diagnosis is required for the test/procedure performed on this patient in order for us to be reimbursed by the patient's insurance. Please provide a supporting diagnosis for the following test/procedure listed below next to the test name along with your signature. *If there is no additional diagnosis for this patient that would support the following test/procedure please document that below next to the test/procedure. Test(s)/Procedure(s) that require a supporting diagnosis: SREE 12/29/16 URINE CULTURE Provider Signature: Date: Thank you Lindy Triana [employer] Once completed, please kindly fax back to [phone] For questions please call [phone]
== END ==
LOC: C.LABUPUNI 09:36
PROVIDERS: ATTEND Family Medicine
DX: I12.9 Hypertensive chronic kidney disease with stage 1 through stage 4 chronic kidney disease, or unspecified chronic kidney disease (principal); N18.4 Chronic kidney disease, stage 4 (severe); I48.2 Chronic atrial fibrillation; M62.81 Muscle weakness (generalized)

== ENCOUNTER → 2017-01-01 | Outpatient (CLI) | payer OTHER ==
[2017-01-01 10:58] LABS: INR 2.3 (0.9-1.1); PROTHROMBIN TIME (PATIENT) 25.4 SECONDS (9.0-12.0)
== END ==
LOC: C.LABUPUNI 09:25
PROVIDERS: ATTEND Family Medicine
DX: I48.2 Chronic atrial fibrillation (principal)

== ENCOUNTER → 2017-01-08 | Outpatient (CLI) | payer OTHER ==
[2017-01-08 09:21] LABS: BASO % 0.4 %; BASO ABS # 0.04 K/uL (0-0.2); COMPLETE YES; EOS % 2.8 %; HEMATOCRIT 30.5 % (37-47); IG% 0.3 %; LYMPH % 17.5 %; LYMPH ABS # 1.91 K/uL (1.2-3.4); MEAN CELL VOLUME 88.4 fL (80-100); MEAN CORPUSCULAR HEMOGLOBIN 28.1 pg (25-34); MEAN CORPUSCULAR HGB CONC 31.8 g/dl (32-36); MEAN PLATELET VOLUME 11.1 fL (7.4-10.4); MONO % 12.5 %; NEUT % 66.5 %; PLATELET COUNT 259 K/uL (130-400); RED BLOOD COUNT 3.45 M/uL (4.2-5.4); WHITE BLOOD COUNT 10.92 K/uL (4.8-10.8)
[2017-01-08 09:28] LABS: INR 2.5 (0.9-1.1); PROTHROMBIN TIME (PATIENT) 28.2 SECONDS (9.0-12.0)
== END ==
LOC: C.LABUPUNI 08:28
PROVIDERS: ATTEND Family Medicine
DX: N18.4 Chronic kidney disease, stage 4 (severe) (principal); I48.2 Chronic atrial fibrillation

== ENCOUNTER → 2017-01-14 | Outpatient (CLI) | payer OTHER ==
[2017-01-14 08:42] LABS: INR 2.6 (0.9-1.1); PROTHROMBIN TIME (PATIENT) 29.1 SECONDS (9.0-12.0)
== END ==
LOC: C.LABUPUNI 07:55
PROVIDERS: ATTEND Family Medicine
DX: Z01.89 Encounter for other specified special examinations (principal)

== ENCOUNTER → 2017-01-15 | Outpatient (CLI) | payer OTHER ==
[2017-01-15 09:19] LABS: HEMATOCRIT 31.3 % (37-47)
[2017-01-15 11:00] LABS: HEMATOCRIT 35.8 % (37-47)
== END ==
LOC: C.LABUPUNI 09:08
PROVIDERS: ATTEND Family Medicine
DX: Z01.89 Encounter for other specified special examinations (principal)

== ENCOUNTER → 2017-01-28 | Outpatient (CLI) | payer OTHER ==
[2017-01-28 10:06] LABS: INR 2.2 (0.9-1.1); PROTHROMBIN TIME (PATIENT) 23.8 SECONDS (9.0-12.0)
== END | disposition home or self-care (01) ==
LOC: C.LABUPUNI 09:25
PROVIDERS: ATTEND Family Medicine
DX: Z01.89 Encounter for other specified special examinations (principal)

== ENCOUNTER → 2017-02-04 | Outpatient (CLI) | payer OTHER ==
[2017-02-04 09:43] LABS: INR 2.4 (0.9-1.1); PROTHROMBIN TIME (PATIENT) 26.4 SECONDS (9.0-12.0)
== END ==
LOC: C.LABUPUNI 09:01
PROVIDERS: ATTEND Nurse Practitioner Family
DX: I48.91 Unspecified atrial fibrillation (principal)

== ENCOUNTER → 2017-02-18 | Outpatient (CLI) | payer OTHER ==
[2017-02-18 10:09] LABS: INR 1.8 (0.9-1.1); PROTHROMBIN TIME (PATIENT) 20.1 SECONDS (9.0-12.0)
== END | disposition home or self-care (01) ==
LOC: C.LABCC 08:43
PROVIDERS: ATTEND Nurse Practitioner Family
DX: I48.2 Chronic atrial fibrillation (principal)

== ENCOUNTER → 2017-02-20 | Outpatient (CLI) | payer OTHER | LOC: C.LABUPUNI 11:19 | PROVIDERS: ATTEND Nurse Practitioner Family | DX: D64.9 Anemia, unspecified (principal) ==

== ENCOUNTER → 2017-02-25 | Outpatient (CLI) | payer OTHER ==
[2017-02-25 09:51] LABS: HEMATOCRIT 33.8 % (37-47); MEAN CELL VOLUME 90.9 fL (80-100); MEAN CORPUSCULAR HEMOGLOBIN 29.8 pg (25-34); MEAN CORPUSCULAR HGB CONC 32.8 g/dl (32-36); MEAN PLATELET VOLUME 11.6 fL (7.4-10.4); PLATELET COUNT 241 K/uL (130-400); RED BLOOD COUNT 3.72 M/uL (4.2-5.4); WHITE BLOOD COUNT 13.17 K/uL (4.8-10.8)
== END | disposition home or self-care (01) ==
LOC: C.LABUPUNI 09:33
PROVIDERS: ATTEND Nurse Practitioner Family
DX: D64.9 Anemia, unspecified (principal)

== ENCOUNTER → 2017-02-27 | Outpatient (CLI) | payer OTHER ==
[2017-02-27 07:31] LABS: BASO % 0.4 %; BASO ABS # 0.05 K/uL (0-0.2); COMPLETE YES; HEMATOCRIT 32.1 % (37-47); IG% 0.7 %; LYMPH % 20.8 %; LYMPH ABS # 2.46 K/uL (1.2-3.4); MEAN CELL VOLUME 90.4 fL (80-100); MEAN CORPUSCULAR HEMOGLOBIN 29.9 pg (25-34); MEAN PLATELET VOLUME 11.2 fL (7.4-10.4); MONO % 11.3 %; NEUT % 63.8 %; PLATELET COUNT 220 K/uL (130-400); RED BLOOD COUNT 3.55 M/uL (4.2-5.4); WHITE BLOOD COUNT 11.81 K/uL (4.8-10.8)
== END ==
LOC: C.LABUPUNI 08:20
PROVIDERS: ATTEND Family Medicine
DX: R48.9 Unspecified symbolic dysfunctions (principal)

== ENCOUNTER → 2017-03-22 | Outpatient (CLI) | payer OTHER ==
[2017-03-22 08:35] LABS: HEMATOCRIT 33.3 % (37-47)
[2017-03-22 08:45] LABS: INR 1.1 (0.9-1.1); PROTHROMBIN TIME (PATIENT) 11.4 SECONDS (9.0-12.0)
== END ==
LOC: C.LABUPUNI 08:22
PROVIDERS: ATTEND Nurse Practitioner Family
DX: D64.9 Anemia, unspecified (principal)

== ENCOUNTER → 2017-04-22 | Outpatient (CLI) | payer OTHER ==
[2017-04-22 09:30] LABS: HEMATOCRIT 33.6 % (37-47)
== END | disposition home or self-care (01) ==
LOC: C.LABUPUNI 09:09
PROVIDERS: ATTEND Nurse Practitioner Family
DX: D64.9 Anemia, unspecified (principal)

== ENCOUNTER → 2017-04-30 | Outpatient (CLI) | payer OTHER ==
[2017-04-30 09:19] LABS: URINE APPEARANCE CLEAR (CLEAR); URINE BILIRUBIN NEG (NEG); URINE COLOR YELLOW; URINE NITRITE NEG (NEG); URINE SPECIFIC GRAVITY 1.013 (1.000-1.030); UROBILINOGEN NEG (NEG)
[2017-04-30 09:21] LABS: MANUAL MICROSCOPIC REQUIRED? NO; REVIEW REQ? NO
== END ==
LOC: C.LABUPUNI 08:34
PROVIDERS: ATTEND Nurse Practitioner Family
DX: N39.0 Urinary tract infection, site not specified (principal)

== ENCOUNTER → 2017-04-30 | Outpatient (CLI) | payer OTHER ==
[2017-04-30 08:28] LABS: BASO % 0.4 %; BASO ABS # 0.05 K/uL (0-0.2); COMPLETE YES; EOS % 2.4 %; HEMATOCRIT 36.1 % (37-47); IG% 0.6 %; LYMPH ABS # 2.55 K/uL (1.2-3.4); MEAN CELL VOLUME 93.5 fL (80-100); MEAN CORPUSCULAR HEMOGLOBIN 31.3 pg (25-34); MEAN CORPUSCULAR HGB CONC 33.5 g/dl (32-36); MEAN PLATELET VOLUME 11.6 fL (7.4-10.4); MONO % 10.2 %; NEUT % 66.4 %; PLATELET COUNT 264 K/uL (130-400); RED BLOOD COUNT 3.86 M/uL (4.2-5.4); WHITE BLOOD COUNT 12.75 K/uL (4.8-10.8)
[2017-04-30 08:36] LABS: BLOOD UREA NITROGEN 53 mg/dl (7-18); BUN/CREATININE RATIO 20.2 (10-20); CALCIUM 10.3 mg/dl (8.5-10.1); CARBON DIOXIDE 22 mmol/L (21-32); CHLORIDE 107 mmol/L (98-107); CREATININE 2.64 mg/dl (0.60-1.20); GLUCOSE 98 mg/dl (70-99); MAGNESIUM 2.3 mg/dl (1.8-2.4); POTASSIUM 4.4 mmol/L (3.5-5.1); SODIUM 136 mmol/L (136-145)
[2017-04-30 08:47] LABS: FERRITIN 152.4 ng/ml (8.0-388.0); PHOSPHORUS 3.7 mg/dl (2.5-4.9); THYROID STIMULATING HORMONE 0.088 uIu/ml (0.300-4.500)
== END ==
LOC: C.LABUPUNI 08:07
PROVIDERS: ATTEND Nurse Practitioner Family
DX: N18.4 Chronic kidney disease, stage 4 (severe) (principal); E03.9 Hypothyroidism, unspecified

== ENCOUNTER → 2017-05-01 | Outpatient (CLI) | payer OTHER | LOC: C.LABUPNIT 10:51 | PROVIDERS: ATTEND Nurse Practitioner Family | DX: E03.9 Hypothyroidism, unspecified (principal) ==

== ENCOUNTER → 2017-05-24 | Outpatient (CLI) | payer OTHER ==
[2017-05-24 09:13] LABS: HEMATOCRIT 34.7 % (37-47)
== END ==
LOC: C.LABUPNIT 09:00
PROVIDERS: ATTEND Nurse Practitioner Family
DX: D64.9 Anemia, unspecified (principal)

== ENCOUNTER → 2017-06-29 | Outpatient (CLI) | payer OTHER ==
[~2017-06-29] MED LIST changes: -FOLI1TAB7 PO; +FOLI1TAB8 PO
== END ==
LOC: C.LABUPNIT 08:39
PROVIDERS: ATTEND Nurse Practitioner Family
DX: D64.9 Anemia, unspecified (principal)

== ENCOUNTER → 2017-07-29 | Outpatient (CLI) | payer OTHER ==
[2017-07-29 08:29] LABS: HEMOGLOBIN 12.1 g/dL (12.0-16.0)
== END | disposition home or self-care (01) ==
LOC: C.LABUPNIT 07:55
PROVIDERS: ATTEND Nurse Practitioner Family
DX: D64.9 Anemia, unspecified (principal)

== ENCOUNTER → 2017-10-29 | Outpatient (CLI) | payer OTHER ==
[2017-10-29 08:24] LABS: BASO % 0.5 %; BASO ABS # 0.06 K/uL (0-0.2); EOS % 2.9 %; EOS ABS # 0.32 K/uL (0-0.5); HEMATOCRIT 34.4 % (37-47); HEMOGLOBIN 11.3 g/dL (12.0-16.0); IG# 0.05 K/uL (0.00-0.02); LYMPH % 22.4 %; MEAN CELL VOLUME 95.6 fL (80-100); MEAN CORPUSCULAR HEMOGLOBIN 31.4 pg (25-34); MEAN CORPUSCULAR HGB CONC 32.8 g/dl (32-36); MEAN PLATELET VOLUME 10.9 fL (7.4-10.4); MONO % 10.9 %; MONO ABS # 1.22 K/uL (0.11-0.59); NEUT % 62.9 %; PLATELET COUNT 249 K/uL (130-400); RED CELL DISTRIBUTION WIDTH CV 13.9 % (11.5-14.5); RED CELL DISTRIBUTION WIDTH SD 48.6 fL (36.4-46.3); WHITE BLOOD COUNT 11.15 K/uL (4.8-10.8)
[2017-10-29 08:35] LABS: BLOOD UREA NITROGEN 46 mg/dl (7-18); CREATININE 2.64 mg/dl (0.60-1.20); GLUCOSE 101 mg/dl (70-99)
[2017-10-29 08:36] LABS: ALBUMIN 2.5 gm/dl (3.4-5.0); ALT/SGPT 17 U/L (12-78); AST/SGOT 11 U/L (15-37); CALCIUM 9.8 mg/dl (8.5-10.1); CARBON DIOXIDE 21 mmol/L (21-32); POTASSIUM 4.4 mmol/L (3.5-5.1); SODIUM 140 mmol/L (136-145)
[2017-10-29 08:38] LABS: TOTAL PROTEIN 6.6 gm/dl (6.4-8.2)
[2017-10-29 08:39] LABS: ALKALINE PHOSPHATASE 78 U/L (45-117)
== END ==
LOC: C.LABUPNIT 08:00
PROVIDERS: ATTEND Nurse Practitioner Family
DX: I12.9 Hypertensive chronic kidney disease with stage 1 through stage 4 chronic kidney disease, or unspecified chronic kidney disease (principal); I48.91 Unspecified atrial fibrillation; I50.9 Heart failure, unspecified; N18.4 Chronic kidney disease, stage 4 (severe)

== ENCOUNTER → 2017-11-01 | Outpatient (CLI) | payer OTHER | END | disposition home or self-care (01) | LOC: C.LABUPNIT 08:48 | PROVIDERS: ATTEND Nurse Practitioner Family | DX: E55.9 Vitamin D deficiency, unspecified (principal) ==

== ENCOUNTER → 2018-01-25 | Outpatient (CLI) | payer OTHER ==
[~2018-01-25] MED LIST changes: +IPRA-64 INH; -IPRASOL4 INH
[2018-01-25 09:39] LABS: BLOOD UREA NITROGEN 51 mg/dl (7-18); CALCIUM 9.8 mg/dl (8.5-10.1); CARBON DIOXIDE 22 mmol/L (21-32); CREATININE 3.79 mg/dl (0.60-1.20); GLUCOSE 97 mg/dl (70-99); POTASSIUM 4.5 mmol/L (3.5-5.1); SODIUM 140 mmol/L (136-145)
--- NOTE | 2018-02-04 16:35 | CODING QUERY NO DIAGNOSIS ---
TREATMENT RENDERED WITHOUT A DIAGNOSIS To promote full compliance with coding requirements relating to patient care, physician participation is requested in all cases of roller skate assembler uncertainty. Please assist us with providing a diagnosis/symptom for the test(s) below: A diagnosis/symptom was not documented on your Order. A valid diagnosis/symptom is required to bill all insurances. Please remember that we are unable to code a diagnosis of rule out, probable, possible, questionable, or suspected. Tests that require a diagnosis: DOS: 01/25/18 * [facility] DIAGNOSIS: Provider Signature: Date: Thank you Amanda [facility] Once completed, please kindly fax back to [phone] For questions please call [phone]
== END ==
LOC: C.LABUPUNI 09:09
PROVIDERS: ATTEND Nurse Practitioner Family
DX: N18.4 Chronic kidney disease, stage 4 (severe) (principal)